=== PATIENT | female | born 1970 | race African-American/Black ===

== ENCOUNTER 2023-05-14 14:47 | Emergency (ER) | payer OTHER, MEDICAID ==
[~2023-05-14] VITALS: Ht 170.2 cm; Wt 79.8 kg
[2023-05-14 16:00] VITALS: BP 134/79; PULSE 79; RESP 17; TEMP 97.9; O2SAT 96
[2023-05-14 18:22] VITALS: BP 119/76; PULSE 74; RESP 17; O2SAT 96
== END 2023-05-14 18:22 | disposition home or self-care (01) ==
LOC: MED 14:47
DX: R60.0 Localized edema (principal)
CPT/HCPCS: 93970; 99284; Q0092

== ENCOUNTER 2023-05-18 11:47 | Emergency (ER) | payer OTHER, MEDICAID ==
[~2023-05-18] VITALS: Ht 157.5 cm; Wt 56.7 kg
[2023-05-18 11:55] VITALS: BP 112/78; PULSE 89; RESP 18; O2SAT 98
[2023-05-18] MEDS ORDERED: CEPH-588 PO (13:42)
== END 2023-05-18 14:56 | disposition home or self-care (01) ==
LOC: MED 11:47
DX: L03.116 Cellulitis of left lower limb (principal); Z79.899 Other long term (current) drug therapy
CPT/HCPCS: 93971; 99284; Q0092

== ENCOUNTER 2023-05-27 11:52 | Emergency (ER) | payer OTHER, MEDICAID ==
[~2023-05-27] VITALS: Ht 157.5 cm; Wt 68.0 kg
[~2023-05-27 11:52] MED LIST: CEPH-588 PO
[2023-05-27 12:03] VITALS: BP 120/70; PULSE 89; RESP 20; TEMP 97.7; O2SAT 98
[2023-05-27 13:20] VITALS: O2SAT 98
[2023-05-27 14:30] LABS: ANION GAP 11.7 (8-16); CALCIUM 9.2 mg/dL (8.5-10.1); CARBON DIOXIDE 28.3 mmol/L (21-32); CREATININE 0.8 mg/dL (0.6-1.3)
[2023-05-27] MEDS ORDERED: FUROSEMIDE 40 MG/4 ML VIAL IVP ONE (14:55)
[2023-05-27 16:17] VITALS: BP 120/70; PULSE 89; RESP 20; TEMP 97.7; O2SAT 98
== END 2023-05-27 16:18 | disposition home or self-care (01) ==
LOC: MED 11:52
DX: R60.9 Edema, unspecified (principal); Z79.899 Other long term (current) drug therapy
CPT/HCPCS: 36415; 80048; 99283; J1940

== ENCOUNTER 2024-02-06 09:53 | Emergency (ER) | payer OTHER, MEDICAID ==
[~2024-02-06] VITALS: Ht 160 cm; Wt 59.0 kg
[2024-02-06 10:05] VITALS: BP 118/72; PULSE 94; RESP 18; TEMP 98.3
[2024-02-06] MEDS ORDERED: KETOROLAC 30 MG/ML VIAL ONE (11:11)
[2024-02-06] MEDS: KETOROLAC 30 MG/ML VIAL IM ONE (11:21)
[2024-02-06] MEDS ORDERED: ACET-10509 PO (11:48)
[2024-02-06 12:10] VITALS: BP 131/71; PULSE 72; RESP 18; TEMP 98.3; O2SAT 100
== END 2024-02-06 12:10 | disposition home or self-care (01) ==
LOC: MED 09:53
DX: S76.011A Strain of muscle, fascia and tendon of right hip, initial encounter (principal); S80.01XA Contusion of right knee, initial encounter; S40.011A Contusion of right shoulder, initial encounter; Z79.899 Other long term (current) drug therapy; W01.198A Fall on same level from slipping, tripping and stumbling with subsequent striking against other object, initial encounter; Y93.89 Activity, other specified; Y92.89 Other specified places as the place of occurrence of the external cause; Y99.8 Other external cause status
CPT/HCPCS: 73030; 73502; 73562; 96372; 99284; J1885